=== PATIENT | male | born 1980 | race Caucasian/White ===

== ENCOUNTER 2024-08-12 06:18 | Day surgery (SDC) | payer OTHER, SELFPAY | END 2024-08-12 13:53 | disposition home or self-care (01) | LOC: GI 06:18 | PROVIDERS: ATTENDING PHYSICIAN Specialist | DX: K29.50 Unspecified chronic gastritis without bleeding (principal); K22.89 Other specified disease of esophagus; K31.7 Polyp of stomach and duodenum; R10.84 Generalized abdominal pain; R14.0 Abdominal distension (gaseous) | CPT/HCPCS: 43239; 88305; 88342 ==

== ENCOUNTER → 2024-09-13 10:00 | Outpatient (REF) | payer OTHER, SELFPAY | LOC: HWRCS 10:00 | PROVIDERS: ATTENDING PHYSICIAN Nurse Practitioner Family | DX: R07.89 Other chest pain (principal) | CPT/HCPCS: 71046; 93306 ==

== ENCOUNTER → 2025-06-26 12:42 | Outpatient (REF) | payer OTHER, SELFPAY | LOC: HWRAD 12:42 | PROVIDERS: ATTENDING PHYSICIAN Nurse Practitioner Family | DX: R00.0 Tachycardia, unspecified (principal); R06.09 Other forms of dyspnea; J84.9 Interstitial pulmonary disease, unspecified | CPT/HCPCS: 71046 ==

== ENCOUNTER → 2025-06-28 09:44 | Outpatient (REF) | payer OTHER, SELFPAY | LOC: RAD 09:44 | PROVIDERS: ATTENDING PHYSICIAN Nurse Practitioner Family | DX: R06.09 Other forms of dyspnea (principal) | CPT/HCPCS: 71275; Q9967 ==

== ENCOUNTER → 2025-06-30 08:41 | Outpatient (REF) | payer OTHER, SELFPAY | LOC: HWRCS 08:41 | PROVIDERS: ATTENDING PHYSICIAN Nurse Practitioner Family | DX: R00.0 Tachycardia, unspecified (principal); R06.09 Other forms of dyspnea | CPT/HCPCS: 93306 ==

== ENCOUNTER → 2025-07-05 13:25 | Outpatient (REF) | payer OTHER, SELFPAY | LOC: RCS 13:25 | PROVIDERS: ATTENDING PHYSICIAN Nurse Practitioner Family | DX: R00.0 Tachycardia, unspecified (principal); R06.09 Other forms of dyspnea | CPT/HCPCS: 93017; 93225; 93226 ==

== ENCOUNTER 2025-07-19 00:43 | Emergency (ER) | payer OTHER, SELFPAY ==
[2025-07-19 01:06] VITALS: BP 157/98
[2025-07-19 02:04] VITALS: BP 132/90
[2025-07-19 02:36] LABS: Hematocrit 46.9 % (39.0-52.0); Hemoglobin 15.5 g/dL (13.0-18.0); Mean Corp Hgb Conc. 33.0 g/dL (33.0-37.0); Mean Corpuscular Volume 81.7 fL (80.0-94.0); Nucleated Red Blood Cells % 0 % (-); Platelet Count 257 10^3/uL (130-400); Red Cell Dist. Width 13.2 % (11.5-14.5)
[2025-07-19 03:00] VITALS: BP 122/96
[2025-07-19 03:09] LABS: ALT (SGPT) 28 U/L (0-50); AST (SGOT) 25 U/L (17-59); Albumin 4.1 g/dl (3.5-5.0); Alkaline Phosphatase 62 U/L (38-126); Blood Urea Nitrogen 23 mg/dl (9-20); Calcium 9.5 mg/dl (8.4-10.2); Carbon Dioxide 31 mmol/L (22-30); Chloride 105 mmol/L (98-107); Estimated Creatinine Clearance 103 ml/min; Glucose 97 mg/dl (70-99); Potassium 4.6 mmol/L (3.5-5.1); Sodium 137 mmol/L (135-145); Total Protein 7.1 g/dl (6.3-8.2); eGFR > 60.00
--- NOTE | 2025-07-19 03:13 | ED.GENMED ---
History of Present Illness
General
Chief Complaint: Blood Pressure Problem
Source: patient
Exam Limitations: none
Time Seen by Provider: 07/19/25 03:12
Nursing documentation reviewed up to this point in time: agreed with
History of Present Illness
History of Present Illness:
The patient is a 45-year-old male with a pmh of lupus, sleep apnea, who presents to the ER today with concerns of intermittent chest pain that began last night around 11:30 PM to 12:00 AM. The pain was severe enough to wake him from sleep and
prompted his visit to the emergency room. The patient described the pain as central and intense, but noted that it comes and goes. He is currently pain free in the chest but note associated symptoms of soreness or achiness in the left arm and recent
jaw discomfort he attributed to temporomandibular joint issues. The patient denies any history of injury or trauma that could explain these symptoms. Additionally, the patient reported a prior similar episode a few weeks ago, which led to an
emergency department visit where his heart rate was high, and he felt lightheaded. An electrocardiogram (EKG) and chest X-ray were performed. Follow-up with his primary care physician included an echocardiogram and stress test, stress test unable to
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
The patient admits to having high blood pressure, reported as 196/119 mmHg upon leaving home for this current visit, but it normalized after arrival. He describes episodes of dizziness, particularly once while he was sitting in the ER. No exertional
component to the chest pain. No strong family history of cardiac disease. Does not smoke. He recently drove back from [place] for the holidays denies long flights, dnies redness or swelling in the calves. He denies any syncopal episodes.
Review of Systems
Review of Systems
All Other Systems: ROS reviewed and negative except as documented in HPI and ROS
Phy Exam
General Physical Exam
General Presentation: well appearing and no apparent distress
General age: appears stated age
General Skin: warm and dry
General Habitus: normal
General Mental: alert
General Hydration: appears well hydrated
ENT Exam
ENT Exam: EOMI
Cardiovascular Exam
Cardiovascular Exam: regular rate/rhythm, no edema, no murmur and normal peripheral pulses
Heart Sounds: normal
Pulmonary Exam
Pulmonary Exam: lungs clear, no respiratory distress, chest non tender, no crackles, no rhonchi, no wheezing and no cough
Gastrointestinal Exam
Gastrointestinal Exam: non distended and other (no epigastric pain)
Neurological Exam
Neurological Exam: alert, oriented x3 and CN II-XII intact
Musculoskeletal Exam
Musculoskeletal Exam: full ROM
Skin Exam
Skin Exam: normal color and warm/dry
Psychiatric Exam
Psychiatric Exam: normal mood/affect
Sepsis
Sepsis Screening
Sepsis Assessment: Sepsis Ruled Out
Sepsis Screen
Sepsis Screen: Sepsis Ruled Out
Date: 07/19/25
Time: 11:12
Course
Orders/Labs/Results
Orders:
Orders
07/19/25 00:56
EKG [Electrocardiogram (*1)] Urgent
Reason for Study: Chest Pain
07/19/25 00:57
EKG- Treatment ONCE
07/19/25 02:16
CMP [Comprehensive Metabolic Panel] Urgent
Complete Blood Count/With Diff Urgent
Troponin I Urgent
07/19/25 03:38
EKG- Treatment ONCE
07/19/25 03:39
CR Chest - 2 Views Urgent
Comment:
Reason For Exam: left sided chest pain
07/19/25 04:15
D-Dimer Urgent
07/19/25 05:00
Electrocardiogram (*1) Urgent
Reason for Study: Chest Pain
Troponin I Urgent
07/19/25 05:33
CT Chest PE Study Urgent
Comment:
Reason For Exam: chest pain, elevated d-dimer
Abnormal Lab Results
07/19/25 07/19/25
02:16 04:15
Absolute Monos (auto) 0.9 H 10^3/uL
(0.1-0.6)
Monocytes % 10.5 H %
(1.7-9.3)
D-Dimer 0.86 H ug/mlFEU
(0.00-0.50)
Carbon Dioxide 31 H mmol/L
(22-30)
BUN 23 H mg/dl
(9-20)
07/19/25 02:16
07/19/25 02:16
Vital Signs
Initial and Last Documented VS:
Initial Vital Signs
Temp Pulse Resp BP Pulse Ox
98.4 F 99 20 157/98 94
07/19/25 01:06 07/19/25 01:06 07/19/25 01:06 07/19/25 01:06 07/19/25 01:06
Last Documented Vital Signs
Temp Pulse Resp BP Pulse Ox
98.4 F 84 18 134/90 96
07/19/25 01:06 07/19/25 05:42 07/19/25 05:42 07/19/25 05:42 07/19/25 05:42
MDM/Problems Addressed
Differential Diagnosis Includes:
The Differential Diagnosis includes, in no particular order and is not limited to:
1. Acute coronary syndrome.
2. Gastroesophageal reflux disease.
3. Musculoskeletal pain.
4. Cardiac arrhythmia.
5. Pericarditis or myocarditis.
6. Pulmonary embolism.
7. Costochondritis.
8. Pleural effusion recurrence.
9. Anxiety-related somatic symptoms.
10. Temporomandibular joint dysfunction.
MDM/Problems Addressed:
The patient is a 45-year-old male with a pmh of lupus, sleep apnea, who presents to the ER today with concerns of intermittent chest pain that began last night around 11:30 PM to 12:00 AM. The pain was severe enough to wake him from sleep and
prompted his visit to the emergency room. No significant cardiac risk factors. Pain free upon initial evaluation.
Troponin undetectable and ecg non-ischemic x2. CTA negative for aortic dissection, pe, pneumothorax, pleural effusion.
Currently, he notes a dull 1/10-2/10 ache in the left side of his chest but otherwise no symptoms. Patient does admit to a persistent dry cough, symptoms may be related to intercostal muscle sprain.
He has close outpatient follow up and initial evaluation with Dr. Pretty from cardiology later this morning at 10:45 am which patient plans to attend. Patient stable for discharge.
Chronic conditions affecting care: Other ( The patient also has a past medical history of gastroesophageal reflux disease for which he takes medication. states this pain feels different; lupus with subsequent lupus pneumonitis)
*Pulse Oximetry
SaO2: 93
Oxygen Mode of Delivery: Room air
Patient hypoxic: no
*Critical Care Note
Total Time (30-74mins, 75-104mins- exclusive of procedures): Not Applicable
ED Attending Note
-
Portions of this chart may have been created with voice recognition software.� Occasional wrong word or��sound alike� substitutions may have occurred due to the inherent limitations of voice recognition software.
Discharge Plan
Departure
Patient Disposition: Home (Routine Discharge)
Date of Disposition: 07/19/25
Time of Disposition: 06:54
Patient with high blood pressure during this ER visit?: Yes
Condition: Good
Discharge Problem:
Chest pain
Instructions: BLOOD PRESSURE, Chest Pain
Prescriptions:
No Action
No Meds [No Current Medications]
0
Referrals:
Tevin Bradley CRNP [Family Provider, Family Practice]
Cy Nieto MD [Active, Cardiology] - Keep scheduled appt
Activity Restrictions/Additional Instructions:
Please continue to monitor your symptoms, please follow-up with cardiology with your scheduled appointment.
PLEASE RETURN TO ER SHOULD YOU DEVELOP ACUTE WORSENING OF YOUR SYMPTOMS, TROUBLE BREATHING, INTRACTABLE NAUSEA OR VOMITING, WEAKNESS, FAINTING SPELLS, OUTPATIENT, OR ANY OTHER SIGNS OR SYMPTOMS WORRISOME TO YOU.
Interventions
Interventions:
*Risk Screen - Suicide Last Done: 07/19/25 00:59
*General Assessment Last Done: 07/19/25 02:02
*Neglect/Abuse Screening Last Done: 07/19/25 01:04
*ED COVID-19 Vaccine History Last Done: 07/19/25 02:02
*ED Influenza Vaccine History Last Done: 07/19/25 02:02
[facility] Risk Assessment Tool Last Done: 07/19/25 00:44
*Nursing Disposition Last Done: 07/19/25 07:13
ED- Cardiac Assessment Last Done: 07/19/25 02:15
ED- Neurological Assessment Last Done: 07/19/25 02:15
ED- Pulmonary Assessment Last Done: 07/19/25 02:15
Discharge Date and Time
Discharge Date/Time: 07/19/25 07:13
Print Language: [place]
[2025-07-19 03:22] LABS: Troponin I < 0.012 ng/ml
[2025-07-19 04:12] VITALS: BP 133/93
[2025-07-19 04:47] LABS: D-Dimer 0.86 ug/mlFEU (0.00-0.50)
[2025-07-19 05:03] VITALS: BP 80/50
[2025-07-19 05:42] VITALS: BP 134/90
[2025-07-19 05:49] LABS: Troponin I < 0.012 ng/ml
== END 2025-07-19 07:13 | disposition home or self-care (01) ==
LOC: EMR 00:43
PROVIDERS: Emergency Medicine; Physician Assistant; EMERGENCY PHYSICIAN Student in an Organized Health Care Education/Training Program; FAMILY PHYSICIAN Nurse Practitioner Family
DX: R07.9 Chest pain, unspecified (principal); G47.30 Sleep apnea, unspecified; M32.9 Systemic lupus erythematosus, unspecified; K21.9 Gastro-esophageal reflux disease without esophagitis
CPT/HCPCS: 99284; 71046; 71275; 80053; 84484; 85025; 85379; 93005; Q9967

== ENCOUNTER → 2025-08-07 08:01 | Outpatient (REF) | payer OTHER, SELFPAY | LOC: HWRCS 08:01 | PROVIDERS: ATTENDING PHYSICIAN Internal Medicine Cardiovascular Disease; FAMILY PHYSICIAN Nurse Practitioner Family | DX: R07.2 Precordial pain (principal); R94.39 Abnormal result of other cardiovascular function study | CPT/HCPCS: 78452; 93017; A9500; J2785 ==